=== PATIENT | female | born 1965 | race Caucasian/White ===

== ENCOUNTER 2019-12-07 18:19 | Inpatient (IN) | payer MEDICARE, OTHER ==
[2019-12-07 18:59] VITALS: BMI 45.3
[2019-12-07] MEDS ORDERED: Bisacodyl 5 MG TAB PO PRN (19:25)
[2019-12-07] MEDS ORDERED: Dextrose 50% Abboject 50 ML SYRINGE SLOW IVP PRN (19:26)
[2019-12-07] MEDS ORDERED: Senokot S 8.6-50 MG TAB PO PRN (19:31)
[2019-12-07] MEDS ORDERED: Polyethylene Glycol 3350 17 GM Packet PO PRN (19:31)
[2019-12-07] MEDS: Apixaban 5 MG TAB PO SCH (21:22)
[2019-12-07] MEDS: Montelukast Sodium 10 mg Tablet PO SCH (21:22)
[2019-12-08 05:56] LABS: Band 3 % (5-11); Hemoglobin 8.7 g/dL (12.0-16.0); Hypochromia MODERATE=16-30 cells (100X) (0-5/hpf); Lymphocytes 20 % (21-51); MDiff Complete? YES; Mean Corpuscular HGB CONC 28.5 g/dL (32.0-36.0); Mean Corpuscular Hemoglobin 22.1 pg (27.0-31.0); Mean Corpuscular Volume 77.7 fL (78.0-98.0); Mean Platelet Volume 8.1 fL (7.4-10.4); Monocytes 4 % (0-10); Neutrophil 73 % (42-75); Platelet Count 307 thou/uL (130-400); Platelet Morphology Comment Appears Adequate; RBC Distribution Width 17.7 % (11.5-14.5); Red Blood Cell (RBC) Count 3.94 mill/uL (4.20-5.40); White Blood Cell (WBC) Count 12.5 thou/uL (4.8-10.8)
[2019-12-08 06:00] LABS: ALT (SGPT) 69 U/L (8-55); AST (SGOT) 30 U/L (5-34); Albumin 3.8 g/dL (3.5-5.0); Alkaline Phosphatase 79 U/L (40-110); Anion Gap 17 mmol/L (10-20); BUN (Urea Nitrogen) 26 mg/dL (9.8-20.1); Bilirubin, Total 0.5 mg/dL (0.2-1.2); Calc. Creatinine Clearance 107 mL/min (70-130); Carbon Dioxide 29 mmol/L (22-29); Cardiac Risk 5.5 (Less than 4.5); Chloride 101 mmol/L (98-107); Cholesterol 131 mg/dl (< 200 Desired); Estimated GFR-MDRD 52; Globulin 3.2 g/dL (2.4-3.5); Glucose 114 mg/dL (70-105); HDL Cholesterol 24 mg/dL (>60 Neg Risk); LDL Cholesterol, Calculated 81 mg/dL; Potassium 3.6 mmol/L (3.5-5.1); Sodium 143 mmol/L (136-145); Triglycerides 131 mg/dL (Less than 150)
[2019-12-08] MEDS: Mometasone/Formoterol 200/5 60 PUFF INH SCH ×2 (06:00→18:01)
[2019-12-08] MEDS ORDERED: Sodium Chloride 0.9% 20 ML ONE (08:46)
[2019-12-08] MEDS: Ascorbic Acid 500 mg Chewable Tablet PO SCH (08:57)
[2019-12-08] MEDS: Apixaban 5 MG TAB PO SCH ×2 (08:58→21:33)
[2019-12-08] MEDS: Fenofibrate Nanocrystallized 145 MG TAB PO SCH (08:58)
[2019-12-08] MEDS ORDERED: Pantoprazole 40 MG VIAL IVP SCH (09:00)
[2019-12-08] MEDS: HumuLIN 70/30 (300 UNITS/3 ML VIAL) SC SCH ×2 (09:00→17:27)
[2019-12-08] MEDS ORDERED: methylPREDNISolone Sod Succ 40 MG VIAL IVP SCH (09:00)
[2019-12-08 11:53] LABS: Hemoglobin A1c 8.2 % (4.0-6.0)
[2019-12-08] MEDS ORDERED: Amlodipine 5 MG TAB PO SCH (13:00)
[2019-12-08] MEDS: HumaLOG 300 UNITS/3 ML VIAL SC PRN (13:21)
--- NOTE | 2019-12-08 13:41 | HP ---
PRINCIPAL DIAGNOSIS: Recent COVID-19 pneumonia with resolving respiratory failure and deconditioning for therapy. BRIEF HISTORY: This is a pleasant 54-year-old female, who was admitted to the hospital in [place] on November 17 with fever, cough, and worsening shortness of breath. She apparently had strong exposure to COVID positive patients. She also tested positive 2 days prior to admission. She was admitted to the hospital. Droplet precautions were followed and she was apparently started on clinical trial with Remdesivir. She unfortunately continued to deteriorate requiring intubation and mechanical ventilation. She also developed acute renal failure from acute tubular necrosis requiring temporary dialysis. She was slowly weaned off the ventilator and actually now off her oxygen. She also has not required dialysis in at least a week and her renal functions are pretty much back to normal. She for some reason is continued on IV Solu-Medrol and IV Protonix. Plan is to switch her to oral prednisone and oral pantoprazole. She has been transitioned from full dose Lovenox to Eliquis and the recommendation is for 3 months of full anticoagulation due to their prothrombotic risk from COVID-19. The patient is up in bed and complains of nausea, but denies any chest pain or shortness of breath. She denies any fever or chills. She is still on droplet precaution as we are waiting on for second negative COVID-19 test. PAST MEDICAL HISTORY: 1. Diabetes mellitus type 2. 2. Hypertension. 3. Dyslipidemia. 4. Restless legs syndrome. 5. Fibromyalgia. 6. Anxiety and bipolar disease. 7. Morbid obesity. 8. Asthma. 9. Resolved acute renal failure. 10. Resolved acute hypoxemic respiratory failure. 11. Possible gastroesophageal reflux disease/gastritis. PAST SURGICAL HISTORY: 1. Hysterectomy. 2. Bilateral oophorectomy. 3. Right knee surgery. 4. Bilateral cataract extraction. 5. Recent temporary dialysis catheter placement. PSYCHOSOCIAL HISTORY: She apparently lives with her extended family. She is a former smoker, but quit in 2012. She has more than a 10 pack year history of smoking. She denies any alcohol or recreational drug abuse. She is active and independent prior to this admission. FAMILY HISTORY: Positive for hypertension and diabetes mellitus. MEDICATIONS: She has been transferred here on the following medications; 1. Tylenol 650 p.o. q.4 p.r.n. 2. DuoNeb 3 mL q.i.d. routine. 3. Eliquis 5 mg b.i.d. 4. Vitamin C 1000 mg daily. 5. Tricor 145 mg daily. 6. Humulin 70/30, 35 units subcu b.i.d. with breakfast and dinner. 7. Solu-Medrol 40 mg IV daily. 8. Dulera two puffs b.i.d. gargle after use. 9. Singulair 10 mg daily. 10. Protonix 40 mg IV daily. 11. MiraLAX 17 g in 8 ounces of water as needed. ALLERGIES: SHE IS ALLERGIC TO CLARITHROMYCIN, KETOROLAC, LATEX, MORPHINE, AND . REVIEW OF SYSTEMS: GENERAL: She denies any fever, chills, but is positive for fatigue and weakness. CARDIOVASCULAR: Denies any chest pain, shortness of breath, palpitations, PND, orthopnea, or pedal edema. RESPIRATORY: Denies any chronic cough, expectoration, or pleuritic type chest pain. GASTROINTESTINAL: Denies any nausea, vomiting, diarrhea, constipation, hematemesis, melena, or hematochezia. GENITOURINARY: Denies any frequency, urgency, dysuria, or hematuria. CENTRAL NERVOUS SYSTEM: Denies any focal numbness, weakness, or fainting spells, but generalized weakness. EXTREMITIES: Denies any arthralgia. SKIN: Denies any rash. HEENT: Denies any difficulty speech, vision, hearing, or swallowing. PHYSICAL EXAMINATION: GENERAL: Very pleasant 54-year-old morbidly obese female, who is resting comfortably, in no apparent distress. She responds appropriately to questions. She is alert, awake, and oriented x3. VITAL SIGNS: She is afebrile. Heart rate 79, respirations 20, oxygen saturation 96% on 2 L nasal cannula, blood pressure is 169/82 this was this morning. I saw her where she did not have her oxygen on, maybe she just took it off, I will have nursing monitor her closely. HEENT: Normocephalic and atraumatic. Pupils equally reactive to light and accommodation. NECK: No JVD, thyromegaly, cervical adenopathy, or throat exudates. No carotid bruits. CARDIOVASCULAR: S1 and S2 plus. RESPIRATORY: Normal vesicular breath sounds with decreased air entry in the bases. Occasional rhonchi. ABDOMEN: Soft, obese, nontender. Bowel sounds heard in all quadrants. EXTREMITIES: Without cyanosis or clubbing. Trace edema. Peripheral pulses are palpable. CENTRAL NERVOUS SYSTEM: Awake and responsive. Cranial nerves 2 through 12 intact. Generalized weakness otherwise nonfocal. LABORATORY DATA: Show a white count of 12.5, hemoglobin and hematocrit are 8.7 and 30.6 with microcytic basis. Sodium is 143, potassium 3.6, BUN and creatinine 26 and 1.10. Blood sugars are 124, 114, and 121. A1c 8.2, total cholesterol 131, LDL 81, HDL 24. Repeat COVID-19 test by PCR is pending. IMPRESSION: 1. Resolving COVID-19 pneumonitis. 2. Resolving acute hypoxemic respiratory failure. 3. Resolved acute renal failure. 4. Diabetes mellitus type 2. 5. Hypertension. 6. Dyslipidemia. 7. Bipolar disorder. 8. Elevated blood pressure. 9. Possible gastritis. PLAN: 1. Continue current medications from previous hospital. 2. Switch methylprednisolone to p.o. Protonix. 3. Switch IV pantoprazole to p.o. pantoprazole. 4. Add Tums p.r.n. 5. Start amlodipine 5 mg daily. We will hold off on CLARE inhibitors for now, but we will start probably in a week to make sure her renal functions continue to stabilize. 6. 1800 calorie heart healthy ADA diet. 7. Accu-Cheks with sliding scale coverage. 8. Continue droplet precautions until second COVID-19 test comes back negative. 9. PT/OT eval and treat. 10. Routine laboratory values. 11. Discussed with the patient and nursing in detail. All questions answered. Job ID: [id number]
[2019-12-08] MEDS: Montelukast Sodium 10 mg Tablet PO SCH (21:33)
[2019-12-09] MEDS: Mometasone/Formoterol 200/5 60 PUFF INH SCH ×2 (06:09→21:42)
[2019-12-09] MEDS: HumuLIN 70/30 (300 UNITS/3 ML VIAL) SC SCH ×2 (09:59→17:57)
[2019-12-09] MEDS: Apixaban 5 MG TAB PO SCH ×2 (10:00→21:41)
[2019-12-09] MEDS: Fenofibrate Nanocrystallized 145 MG TAB PO SCH (10:00)
[2019-12-09] MEDS: Amlodipine 5 MG TAB PO SCH (10:00)
[2019-12-09] MEDS: Ascorbic Acid 500 mg Chewable Tablet PO SCH (10:00)
[2019-12-09] MEDS: predniSONE 20 MG TAB PO SCH (10:01)
--- NOTE | 2019-12-09 10:42 | PRG ---
DATE OF SERVICE: 12/09/2019 SUBJECTIVE: Ms. Burnham is up in bed and denies any concerns. Her nausea has pretty much resolved. She is down to 1.5 L of oxygen. She apparently is having some urinary hesitancy and I advised nursing to do a bladder scan, and if that is unremarkable, then to get urinalysis and urine culture. OBJECTIVE: VITAL SIGNS: The patient is afebrile. Heart rate 83, respirations 18, oxygen saturation 97% on 1.5 L, blood pressure 164/72. CARDIOVASCULAR: S1 and S2 plus. RESPIRATORY: Normal vesicular breath sounds with occasional rhonchi. ABDOMEN: Soft, nontender, obese. Bowel sounds heard in all quadrants. EXTREMITIES: Without cyanosis or clubbing. CENTRAL NERVOUS SYSTEM: Generalized weakness otherwise nonfocal. LABORATORY VALUES: Repeat COVID-19 PCR is still pending. IMPRESSION: 1. Resolving COVID-19 pneumonitis. 2. Resolved acute renal failure due to acute tubular necrosis. 3. Resolving acute hypoxemic respiratory failure. 4. Diabetes mellitus type 2. 5. Dyslipidemia. 6. Hypertension. 7. Fibromyalgia. 8. Restless legs syndrome. 9. Asthma. 10. History of bipolar disorder. 11. Deconditioning. PLAN: 1. Continue current medications. 2. 1800 calorie heart healthy ADA diet. 3. Add hydralazine 25 mg p.o. t.i.d. 4. Monitor blood pressure and adjust medications as needed. 5. Accu-Cheks with sliding scale coverage. 6. Bladder scan and then urinalysis and urine culture if needed. 7. Titrate oxygen and monitor respiratory status. 8. Continue droplet precautions until repeat COVID-19 PCR comes back negative. 9. Continue physical therapy and occupational therapy. 10. Recheck CBC and BMP tomorrow. 11. DVT prophylaxis - the patient is on Eliquis. 12. Decubitus precautions. 13. Stress ulcer prophylaxis. She is on pantoprazole. 14. Taper prednisone. 15. Discussed with the patient and nursing in detail. All questions answered. Job ID: [id number]
[2019-12-09] MEDS: OLANZapine 5 MG TAB PO SCH (21:41)
[2019-12-09] MEDS: Montelukast Sodium 10 mg Tablet PO SCH (21:41)
[2019-12-09] MEDS: Mag-Al Plus 1200 MG/1200 MG/120 MG/30 ML UDCUP PO PRN (21:43)
[2019-12-10] MEDS: Mometasone/Formoterol 200/5 60 PUFF INH SCH ×2 (05:43→18:02)
[2019-12-10] MEDS: Ascorbic Acid 500 mg Chewable Tablet PO SCH (09:10)
[2019-12-10] MEDS: Fenofibrate Nanocrystallized 145 MG TAB PO SCH (09:11)
[2019-12-10] MEDS: Apixaban 5 MG TAB PO SCH ×2 (09:11→21:11)
[2019-12-10] MEDS: predniSONE 20 MG TAB PO SCH (09:11)
[2019-12-10] MEDS: Amlodipine 5 MG TAB PO SCH (09:11)
[2019-12-10] MEDS: HumuLIN 70/30 (300 UNITS/3 ML VIAL) SC SCH ×3 (12:41→18:01)
[2019-12-10 13:19] LABS: SARS-CoV-2 MS2 Positive; SARS-CoV-2 N Gene Negative; SARS-CoV-2 S Gene Negative; SARS-CoV-2 orf1ab Negative
--- NOTE | 2019-12-10 15:33 | PRG ---
DATE OF SERVICE: 12/10/2019 SUBJECTIVE: Ms. Burnham is doing well. The Zyprexa seemed to help. Her repeat COVID-19 test is negative and she will be taken off isolation and droplet precautions. She is very happy about that. OBJECTIVE: VITAL SIGNS: She is afebrile. Heart rate 84, respirations 18, oxygen saturation 97% on 1.5 L nasal cannula, blood pressure is still elevated at 179/77. CARDIOVASCULAR: S1 and S2 plus. RESPIRATORY: Normal vesicular breath sounds. ABDOMEN: Soft, nontender. Bowel sounds heard in all quadrants. EXTREMITIES: Without cyanosis or clubbing. CENTRAL NERVOUS SYSTEM: Generalized weakness, otherwise nonfocal. LABORATORY DATA: Blood sugars are 121, 131, 94. White count is 4.5, H and H are 8.7 and 30.6 that was actually on admission. We are supposed to get repeat labs this morning and I am not sure what happened. IMPRESSION: 1. Hypertension, not well controlled. 2. Acute hypoxemic respiratory failure. 3. Resolved COVID-19 infection. 4. Diabetes mellitus, type 2. 5. Resolved acute renal failure. 6. Bipolar disorder. 7. Dyslipidemia. 8. Deconditioning. PLAN: 1. Continue current medications, but increase amlodipine to 10 mg daily. 2. Probably start her on lisinopril if amlodipine is not enough. 3. Check and see what happened that the labs ordered this morning. 4. Discontinue droplet precautions and isolation. 5. Continue therapy. 6. Routine laboratory values. 7. 1800 calorie heart healthy ADA diet. 8. Accu-Cheks with sliding scale coverage. 9. DVT prophylaxis-the patient is on Eliquis. Job ID: [id number] [facility]
[2019-12-10] MEDS: OLANZapine 5 MG TAB PO SCH (21:10)
[2019-12-10] MEDS: Montelukast Sodium 10 mg Tablet PO SCH (21:10)
[2019-12-10] MEDS: Lisinopril 10 MG TAB PO SCH (21:11)
[2019-12-11] MEDS: Mometasone/Formoterol 200/5 60 PUFF INH SCH ×2 (05:42→17:12)
[2019-12-11] MEDS: Ascorbic Acid 500 mg Chewable Tablet PO SCH (08:55)
[2019-12-11] MEDS: Apixaban 5 MG TAB PO SCH ×2 (08:56→20:16)
[2019-12-11] MEDS: predniSONE 20 MG TAB PO SCH (08:56)
[2019-12-11] MEDS: Fenofibrate Nanocrystallized 145 MG TAB PO SCH (08:58)
[2019-12-11] MEDS: Amlodipine 5 MG TAB PO SCH (08:58)
[2019-12-11] MEDS: HumuLIN 70/30 (300 UNITS/3 ML VIAL) SC SCH ×2 (08:59→17:13)
--- NOTE | 2019-12-11 15:13 | PRG ---
DATE OF SERVICE: 12/11/2019 SUBJECTIVE: Ms. Burnham has been moved to room 152 since her second COVID-19 test was negative. She is doing much better. She is off her oxygen currently. She states that the Zyprexa is helping. OBJECTIVE: VITAL SIGNS: She is afebrile. Heart rate 84, respirations 16, oxygen saturation 90% on room air, blood pressure 156/72. CARDIOVASCULAR: S1 and S2 plus. RESPIRATORY: Normal vesicular breath sounds. ABDOMEN: Soft, nontender. Bowel sounds heard in all quadrants. EXTREMITIES: Without cyanosis or clubbing. CENTRAL NERVOUS SYSTEM: Improving deconditioning. LABORATORY DATA: Blood sugars are 140, 86, 157, 111, and 149. IMPRESSION: 1. Resolved COVID-19 infection. 2. Resolved acute renal failure. 3. Resolved acute hypoxemic respiratory failure. 4. Diabetes mellitus type 2. 5. Hypertension. 6. Dyslipidemia. 7. Bipolar disorder. 8. Deconditioning. PLAN: 1. Continue current medications. 2. Recheck CBC and BMP tomorrow. For some reason, the labs that ordered yesterday were not done. 3. Continue to monitor respiratory status. 4. DVT prophylaxis - the patient is on Eliquis. 5. Decubitus precautions. 6. Stress ulcer prophylaxis. 7. Adjust blood pressure medications. 8. Discussed with the patient and nursing in detail. All questions answered. Job ID: [id number]
[2019-12-11] MEDS ORDERED: Fluconazole 100 MG TAB PO SCH (18:45)
[2019-12-11] MEDS: Montelukast Sodium 10 mg Tablet PO SCH (20:14)
[2019-12-11] MEDS: Lisinopril 10 MG TAB PO SCH (20:15)
[2019-12-11] MEDS: OLANZapine 5 MG TAB PO SCH (20:16)
[2019-12-12 05:16] LABS: #Basophils 0.1 thou/uL (0.0-0.2); #Eosinphils 0.3 thou/uL (0.0-0.7); #Lymphocytes 3.1 thou/uL (1.20-3.40); #Monocytes 0.7 thou/uL (0.11-0.59); #Neutrophils 6.1 thou/uL (1.40-6.50); %Basophils 1.4 % (0.0-1.0); %Eosinophils 2.5 % (0.0-10.0); %Monocytes 6.5 % (0.0-10.0); %Neutrophils 59.7 % (42.0-75.0); Hemoglobin 8.3 g/dL (12.0-16.0); Hypochromia MODERATE=16-30 cells (100X) (0-5/hpf); MDiff Complete? YES; Mean Corpuscular HGB CONC 29.2 g/dL (32.0-36.0); Mean Corpuscular Hemoglobin 22.8 pg (27.0-31.0); Mean Corpuscular Volume 78.2 fL (78.0-98.0); Mean Platelet Volume 8.4 fL (7.4-10.4); Microcytosis MODERATE=15-30 cells (100X) (0-5/hpf); Platelet Count 244 thou/uL (130-400); Platelet Morphology Comment Appears Adequate; RBC Distribution Width 19.6 % (11.5-14.5); Red Blood Cell (RBC) Count 3.62 mill/uL (4.20-5.40); White Blood Cell (WBC) Count 10.3 thou/uL (4.8-10.8)
[2019-12-12 05:23] LABS: Anion Gap 16 mmol/L (10-20); BUN (Urea Nitrogen) 20 mg/dL (9.8-20.1); Calc. Creatinine Clearance 107 mL/min (70-130); Calcium 9.2 mg/dL (7.8-10.44); Carbon Dioxide 27 mmol/L (22-29); Chloride 102 mmol/L (98-107); Estimated GFR-MDRD 52; Glucose 105 mg/dL (70-105); Potassium 3.3 mmol/L (3.5-5.1); Sodium 142 mmol/L (136-145)
[2019-12-12] MEDS: Mometasone/Formoterol 200/5 60 PUFF INH SCH ×2 (05:29→18:35)
[2019-12-12] MEDS: HumuLIN 70/30 (300 UNITS/3 ML VIAL) SC SCH ×2 (08:56→16:51)
[2019-12-12] MEDS: predniSONE 20 MG TAB PO SCH (08:57)
[2019-12-12] MEDS: Ascorbic Acid 500 mg Chewable Tablet PO SCH (08:57)
[2019-12-12] MEDS: Fenofibrate Nanocrystallized 145 MG TAB PO SCH (08:57)
[2019-12-12] MEDS: Apixaban 5 MG TAB PO SCH ×2 (08:57→21:31)
[2019-12-12] MEDS: Amlodipine 5 MG TAB PO SCH (08:57)
[2019-12-12] MEDS: Acetaminophen 325 MG TAB PO PRN ×2 (09:25→16:54)
[2019-12-12] MEDS: HumaLOG 300 UNITS/3 ML VIAL SC PRN ×2 (12:01→16:51)
--- NOTE | 2019-12-12 13:31 | PRG ---
DATE OF SERVICE: 12/12/2019 SUBJECTIVE: Ms. Burnham is up in her chair. She just finished her lunch. She denies any questions or concerns. OBJECTIVE: VITAL SIGNS: She is afebrile. Heart rate is 97, respirations 18, oxygen saturation 94% on room air, blood pressure 144/68. CARDIOVASCULAR: S1, S2 plus. RESPIRATORY: Normal vesicular breath sounds. ABDOMEN: Soft, nontender. Bowel sounds heard in all quadrants. EXTREMITIES: Without cyanosis or clubbing. CENTRAL NERVOUS SYSTEM: Improving deconditioning. LABORATORY DATA: White count is 10.3, H and H are 8.3 and 28.3. Sodium 142, potassium is slightly low at 3.3, BUN and creatinine are 20 and 1.1. Blood sugars are 149, 178, 112, 161. IMPRESSION: 1. Resolved COVID pneumonia. 2. Resolved acute hypoxemic respiratory failure. 3. Resolved acute tubular necrosis and acute renal failure. 4. Asthma. 5. Diabetes mellitus type 2. 6. Hypertension. 7. Dyslipidemia. 8. Bipolar disorder. 9. Obesity. PLAN: 1. Continue current medications. 2. Heart healthy ADA diet. 3. Accu-Cheks with sliding scale coverage. 4. Taper steroids. 5. Continue therapy. 6. DVT prophylaxis - she is on Eliquis. 7. Decubitus precautions. 8. Stress ulcer prophylaxis. 9. Routine laboratory values. Job ID: [id number]
[2019-12-12 16:47] LABS: INR-International Normal Ratio 1.5; Prothrombin Time 17.6 sec (12.0-14.7)
[2019-12-12] MEDS: Montelukast Sodium 10 mg Tablet PO SCH (21:31)
[2019-12-12] MEDS: Lisinopril 10 MG TAB PO SCH (21:31)
[2019-12-12] MEDS: OLANZapine 5 MG TAB PO SCH (21:32)
[2019-12-13] MEDS: Acetaminophen 325 MG TAB PO PRN ×3 (04:39→18:13)
[2019-12-13 05:59] LABS: INR-International Normal Ratio 1.5
[2019-12-13] MEDS: Mometasone/Formoterol 200/5 60 PUFF INH SCH ×2 (06:02→18:12)
[2019-12-13] MEDS: HumuLIN 70/30 (300 UNITS/3 ML VIAL) SC SCH ×2 (09:31→17:08)
[2019-12-13] MEDS: predniSONE 20 MG TAB PO SCH (09:34)
[2019-12-13] MEDS: Apixaban 5 MG TAB PO SCH ×2 (09:35→20:46)
[2019-12-13] MEDS: Amlodipine 5 MG TAB PO SCH (09:35)
[2019-12-13] MEDS: Ascorbic Acid 500 mg Chewable Tablet PO SCH (09:35)
[2019-12-13] MEDS: Fenofibrate Nanocrystallized 145 MG TAB PO SCH (09:36)
--- NOTE | 2019-12-13 14:08 | PRG ---
DATE OF SERVICE: 12/13/2019 SUBJECTIVE: Ms. Burnham is resting in bed. She is tired due to therapy. She also states that she has a rash to bilateral axilla and it is itchy and irritating. She is happy with her progress. Denies any chest pain or shortness of breath. OBJECTIVE: VITAL SIGNS: She is afebrile. Heart rate is 86, respirations 18, oxygen saturation 92% on room air, blood pressure 129/66. CARDIOVASCULAR: S1 and S2 plus. RESPIRATORY: Normal vesicular breath sounds. ABDOMEN: Soft, nontender. Bowel sounds heard in all quadrants. EXTREMITIES: Without cyanosis or clubbing. CENTRAL NERVOUS SYSTEM: Improving deconditioning. IMPRESSION: 1. Resolved COVID-19 pneumonia. 2. Resolved acute hypoxemic respiratory failure. 3. Resolved acute renal failure. 4. Hypertension. 5. Dyslipidemia. 6. Diabetes mellitus type 2. 7. Morbid obesity. PLAN: 1. Continue current medications. 2. 1800 calorie heart healthy ADA diet. 3. Accu-Cheks with sliding scale coverage. 4. DVT prophylaxis - she is on Eliquis. 5. Decubitus precautions. 6. Stress ulcer prophylaxis. 7. Routine laboratory values. 8. Nystatin powder b.i.d. for tinea cruris. Job ID: [id number]
[2019-12-13] MEDS: HumaLOG 300 UNITS/3 ML VIAL SC PRN (17:09)
[2019-12-13] MEDS: Montelukast Sodium 10 mg Tablet PO SCH (20:46)
[2019-12-13] MEDS: Nystatin Powder 15 GM BOT TOP SCH (20:46)
[2019-12-13] MEDS: OLANZapine 5 MG TAB PO SCH (20:46)
[2019-12-13] MEDS: Lisinopril 10 MG TAB PO SCH (20:46)
[2019-12-14] MEDS: Acetaminophen 325 MG TAB PO PRN ×3 (05:12→16:13)
[2019-12-14] MEDS: Mometasone/Formoterol 200/5 60 PUFF INH SCH ×2 (05:12→17:46)
[2019-12-14 05:36] LABS: INR-International Normal Ratio 1.2; Prothrombin Time 15.3 sec (12.0-14.7)
[2019-12-14] MEDS: Fenofibrate Nanocrystallized 145 MG TAB PO SCH (08:45)
[2019-12-14] MEDS: Apixaban 5 MG TAB PO SCH ×2 (08:45→20:11)
[2019-12-14] MEDS: Amlodipine 5 MG TAB PO SCH (08:46)
[2019-12-14] MEDS: predniSONE 20 MG TAB PO SCH (08:46)
[2019-12-14] MEDS: Ascorbic Acid 500 mg Chewable Tablet PO SCH (08:46)
[2019-12-14] MEDS: HumuLIN 70/30 (300 UNITS/3 ML VIAL) SC SCH ×2 (08:47→16:14)
[2019-12-14] MEDS: Nystatin Powder 15 GM BOT TOP SCH ×2 (09:00→20:13)
[2019-12-14] MEDS: HumaLOG 300 UNITS/3 ML VIAL SC PRN ×2 (11:25→16:15)
--- NOTE | 2019-12-14 11:53 | PRG ---
DATE OF SERVICE: 12/14/2019 SUBJECTIVE: Ms. Burnham has been moved to 142. She is happy with her progress. She denies any questions or concerns. OBJECTIVE: VITAL SIGNS: She is afebrile, heart rate 94, respirations 20, oxygen saturation 94% on room air, blood pressure 156/72. CARDIOVASCULAR: S1 and S2 plus. RESPIRATORY: Normal vesicular breath sounds. ABDOMEN: Soft, nontender. Bowel sounds heard in all quadrants. EXTREMITIES: Without cyanosis or clubbing. CENTRAL NERVOUS SYSTEM: Improving deconditioning. LABORATORY VALUES: Blood sugars of 132, 147, 231, 137, and 134. IMPRESSION: 1. Resolved acute hypoxemic respiratory failure. 2. Resolved COVID-19 infection. 3. Diabetes mellitus type 2. 4. Hypertension. 5. Dyslipidemia. 6. Morbid obesity. 7. Improving deconditioning. 8. Resolved acute renal failure. PLAN: 1. Continue current medications. 2. 1800-calorie heart healthy ADA diet. 3. Accu-Cheks with sliding scale coverage. 4. DVT prophylaxis - she is on Eliquis. 5. Decubitus precautions. 6. Stress ulcer prophylaxis. 7. Routine laboratory values. 8. Physical therapy. 9. Nystatin powder for tinea cruris. Job ID: [id number]
[2019-12-14] MEDS: OLANZapine 5 MG TAB PO SCH (20:11)
[2019-12-14] MEDS: Lisinopril 10 MG TAB PO SCH (20:11)
[2019-12-14] MEDS: Montelukast Sodium 10 mg Tablet PO SCH (20:11)
[2019-12-15] MEDS: Acetaminophen 325 MG TAB PO PRN ×3 (03:02→16:52)
[2019-12-15] MEDS: Mometasone/Formoterol 200/5 60 PUFF INH SCH ×2 (05:14→18:13)
[2019-12-15 05:29] LABS: INR-International Normal Ratio 1.3; Prothrombin Time 16.5 sec (12.0-14.7)
[2019-12-15] MEDS: Nystatin Powder 15 GM BOT TOP SCH ×2 (08:08→20:30)
[2019-12-15] MEDS: Fenofibrate Nanocrystallized 145 MG TAB PO SCH (08:08)
[2019-12-15] MEDS: Amlodipine 5 MG TAB PO SCH (08:09)
[2019-12-15] MEDS: Ascorbic Acid 500 mg Chewable Tablet PO SCH (08:09)
[2019-12-15] MEDS: HumuLIN 70/30 (300 UNITS/3 ML VIAL) SC SCH ×2 (08:09→16:47)
[2019-12-15] MEDS: predniSONE 20 MG TAB PO SCH (08:09)
[2019-12-15] MEDS: Apixaban 5 MG TAB PO SCH ×2 (08:09→20:27)
[2019-12-15] MEDS: HumaLOG 300 UNITS/3 ML VIAL SC PRN ×2 (11:40→16:48)
--- NOTE | 2019-12-15 13:58 | PRG ---
DATE OF SERVICE: 12/15/2019 SUBJECTIVE: Ms. Burnham is doing well. She is happy with her progress. She denies any questions or concerns. Apparently, there is some social issue going on, where her family does not want her back home. I have put an order for Case Management to work on discharge planning. OBJECTIVE: VITAL SIGNS: She is afebrile. Heart rate 94, respirations 22, oxygen saturation 93% on room air, blood pressure 137/87. CARDIOVASCULAR: S1 and S2 plus. RESPIRATORY: Normal vesicular breath sounds. ABDOMEN: Soft, nontender. Bowel sounds heard in all quadrants. EXTREMITIES: Without cyanosis or clubbing. IMPRESSION: 1. Resolved COVID pneumonia. 2. Resolved acute renal failure. 3. Resolved acute hypoxemic respiratory failure. 4. Diabetes mellitus type 2. 5. Hypertension. 6. Dyslipidemia. 7. Morbid obesity. 8. Tinea cruris. PLAN: 1. Continue current medications. 2. 1800 calorie heart healthy ADA diet. 3. Accu-Cheks with sliding scale coverage. 4. DVT prophylaxis - she is on Eliquis. 5. Decubitus precautions. 6. Stress ulcer prophylaxis. 7. Routine laboratory values. 8. Physical therapy. Job ID: [id number]
[2019-12-15] MEDS: OLANZapine 5 MG TAB PO SCH (20:27)
[2019-12-15] MEDS: Lisinopril 10 MG TAB PO SCH (20:27)
[2019-12-15] MEDS: Montelukast Sodium 10 mg Tablet PO SCH (20:29)
[2019-12-16] MEDS: Acetaminophen 325 MG TAB PO PRN ×3 (02:35→18:29)
[2019-12-16] MEDS: Mometasone/Formoterol 200/5 60 PUFF INH SCH ×2 (05:21→18:02)
[2019-12-16 05:42] LABS: INR-International Normal Ratio 1.3; Prothrombin Time 16.4 sec (12.0-14.7)
[2019-12-16] MEDS: Fenofibrate Nanocrystallized 145 MG TAB PO SCH (08:25)
[2019-12-16] MEDS: predniSONE 20 MG TAB PO SCH (08:26)
[2019-12-16] MEDS: Ascorbic Acid 500 mg Chewable Tablet PO SCH (08:26)
[2019-12-16] MEDS: Apixaban 5 MG TAB PO SCH ×2 (08:26→20:40)
[2019-12-16] MEDS: Amlodipine 5 MG TAB PO SCH (08:26)
[2019-12-16] MEDS: HumuLIN 70/30 (300 UNITS/3 ML VIAL) SC SCH ×2 (08:27→17:57)
[2019-12-16] MEDS: Nystatin Powder 15 GM BOT TOP SCH ×2 (08:27→20:40)
[2019-12-16] MEDS: HumaLOG 300 UNITS/3 ML VIAL SC PRN ×3 (12:24→20:41)
--- NOTE | 2019-12-16 14:40 | PRG ---
DATE OF SERVICE: 12/16/2019 SUBJECTIVE: Ms. Burnham is doing well. She is very happy that they have made her independent within the wound. She is happy with progress. No concerns or questions. OBJECTIVE: VITAL SIGNS: She is afebrile, heart rate 94, respirations 20, oxygen saturation 93% on room air, and blood pressure 139/65. CARDIOVASCULAR SYSTEM: S1 and S2 plus. RESPIRATORY SYSTEM: Normal vesicular breath sounds. ABDOMEN: Soft, nontender. Bowel sounds heard in all quadrants. EXTREMITIES: Without cyanosis or clubbing. CENTRAL NERVOUS SYSTEM: Grossly nonfocal. IMPRESSION: 1. Resolved COVID-19 pneumonia. 2. Resolved acute renal failure. 3. Diabetes mellitus, type 2. 4. Hypertension. 5. Dyslipidemia. 6. Bipolar disorder. 7. Obesity. PLAN: 1. Continue current medications. 2. 1800-calorie heart healthy ADA diet. 3. Accu-Cheks with sliding scale coverage. 4. DVT prophylaxis - she is on Eliquis. 5. Decubitus precautions. 6. Stress ulcer prophylaxis. 7. Monitor respiratory status. 8. Continue therapy. 9. Routine laboratory values. 10. Her blood sugars are 167, 129, 132, 188. Job ID: [id number]
[2019-12-16] MEDS: Montelukast Sodium 10 mg Tablet PO SCH (20:39)
[2019-12-16] MEDS: OLANZapine 5 MG TAB PO SCH (20:39)
[2019-12-16] MEDS: Lisinopril 10 MG TAB PO SCH (20:40)
[2019-12-17] MEDS: Mometasone/Formoterol 200/5 60 PUFF INH SCH ×2 (05:39→18:10)
[2019-12-17 05:40] LABS: Hemoglobin 8.8 g/dL (12.0-16.0); Platelet Count 261 thou/uL (130-400)
[2019-12-17] MEDS: Acetaminophen 325 MG TAB PO PRN ×3 (05:40→20:24)
[2019-12-17 05:50] LABS: INR-International Normal Ratio 1.4
[2019-12-17] MEDS: HumuLIN 70/30 (300 UNITS/3 ML VIAL) SC SCH ×2 (08:18→16:22)
[2019-12-17] MEDS: Amlodipine 5 MG TAB PO SCH (08:19)
[2019-12-17] MEDS: predniSONE 20 MG TAB PO SCH (08:19)
[2019-12-17] MEDS: Ascorbic Acid 500 mg Chewable Tablet PO SCH (08:20)
[2019-12-17] MEDS: Fenofibrate Nanocrystallized 145 MG TAB PO SCH (08:20)
[2019-12-17] MEDS: Nystatin Powder 15 GM BOT TOP SCH ×2 (08:20→20:27)
[2019-12-17] MEDS: Apixaban 5 MG TAB PO SCH ×2 (08:20→20:26)
[2019-12-17] MEDS: HumaLOG 300 UNITS/3 ML VIAL SC PRN ×2 (16:23→20:27)
--- NOTE | 2019-12-17 16:23 | PRG ---
DATE OF SERVICE: 12/17/2019 SUBJECTIVE: Ms. Burnham is doing the same other than mild headache on and off, Tylenol helps. She apparently had to file an appeal for her to stay here longer. OBJECTIVE: VITAL SIGNS: She is afebrile. Heart rate 69, respirations 18, oxygen saturation 94% on room air. CARDIOVASCULAR SYSTEM: S1 and S2 plus. RESPIRATORY SYSTEM: Normal vesicular breath sounds. ABDOMEN: Soft and nontender. Bowel sounds heard in all quadrants. EXTREMITIES: Without cyanosis or clubbing. Improving deconditioning. IMPRESSION: 1. Resolved COVID-19 infection. 2. Resolved acute renal failure. 3. Resolved acute hypoxemic respiratory failure. 4. Diabetes mellitus type 2. 5. Hypertension. 6. Bipolar disorder. 7. Obesity. 8. Improving deconditioning. PLAN: 1. Continue current medications. 2. Nutritional support with 1800-calorie heart healthy ADA diet. 3. Accu-Cheks with sliding scale coverage. 4. DVT prophylaxis-the patient is on Eliquis. 5. Decubitus precautions. 6. Stress ulcer prophylaxis. 7. Routine laboratory values. 8. Therapy. Job ID: [id number]
[2019-12-17] MEDS: Lisinopril 10 MG TAB PO SCH (20:25)
[2019-12-17] MEDS: OLANZapine 5 MG TAB PO SCH (20:25)
[2019-12-17] MEDS: Montelukast Sodium 10 mg Tablet PO SCH (20:26)
[2019-12-18] MEDS: Acetaminophen 325 MG TAB PO PRN ×4 (03:22→21:29)
[2019-12-18] MEDS: Mometasone/Formoterol 200/5 60 PUFF INH SCH ×2 (05:34→18:12)
[2019-12-18] MEDS: HumuLIN 70/30 (300 UNITS/3 ML VIAL) SC SCH ×2 (08:46→17:12)
[2019-12-18] MEDS: Ascorbic Acid 500 mg Chewable Tablet PO SCH (08:47)
[2019-12-18] MEDS: Apixaban 5 MG TAB PO SCH ×2 (08:47→20:28)
[2019-12-18] MEDS: Amlodipine 5 MG TAB PO SCH (08:47)
[2019-12-18] MEDS: predniSONE 20 MG TAB PO SCH (08:47)
[2019-12-18] MEDS: Nystatin Powder 15 GM BOT TOP SCH ×2 (08:48→20:29)
[2019-12-18] MEDS: Fenofibrate Nanocrystallized 145 MG TAB PO SCH (08:48)
[2019-12-18] MEDS: HumaLOG 300 UNITS/3 ML VIAL SC PRN ×3 (11:17→20:31)
--- NOTE | 2019-12-18 14:45 | PRG ---
DATE OF SERVICE: 12/18/2019 SUBJECTIVE: Ms. Burnham is resting in bed. She is happy with her progress. No family at bedside. Discussed with nursing. OBJECTIVE: VITAL SIGNS: She is afebrile. Heart rate 63, respirations are 16, oxygen saturation 96% on room air, blood pressure was elevated at 178/76. CARDIOVASCULAR: S1 and S2 plus. RESPIRATORY: Normal vesicular breath sounds. ABDOMEN: Soft, nontender. Bowel sounds heard in all quadrants. Obese. EXTREMITIES: Without cyanosis or clubbing. CENTRAL NERVOUS SYSTEM: Improving deconditioning. IMPRESSION: 1. Hypertension, not well controlled. 2. Diabetes mellitus type 2. 3. Dyslipidemia. 4. Asthma. 5. Bipolar disorder. 6. Improving deconditioning. PLAN: 1. Continue current medications. 2. Increase lisinopril to 20 mg at bedtime. 3. Last dose of prednisone is today. 4. 1800 calorie heart healthy ADA diet. 5. Accu-Cheks with sliding scale coverage. 6. Physical therapy. 7. Monitor respiratory status. 8. Routine laboratory values. Job ID: [id number]
[2019-12-18] MEDS: Montelukast Sodium 10 mg Tablet PO SCH (20:27)
[2019-12-18] MEDS: Lisinopril 20 MG TAB PO SCH (20:28)
[2019-12-18] MEDS: OLANZapine 5 MG TAB PO SCH (20:29)
[2019-12-19] MEDS: Acetaminophen 325 MG TAB PO PRN ×4 (03:44→20:09)
[2019-12-19] MEDS: Mometasone/Formoterol 200/5 60 PUFF INH SCH ×2 (05:53→18:32)
[2019-12-19] MEDS: Nystatin Powder 15 GM BOT TOP SCH ×2 (08:58→20:12)
[2019-12-19] MEDS: HumuLIN 70/30 (300 UNITS/3 ML VIAL) SC SCH ×2 (08:58→17:02)
[2019-12-19] MEDS: Fenofibrate Nanocrystallized 145 MG TAB PO SCH (08:59)
[2019-12-19] MEDS: Ascorbic Acid 500 mg Chewable Tablet PO SCH (08:59)
[2019-12-19] MEDS: Amlodipine 5 MG TAB PO SCH (09:00)
[2019-12-19] MEDS: Apixaban 5 MG TAB PO SCH ×2 (09:00→20:10)
--- NOTE | 2019-12-19 13:40 | PRG ---
DATE OF SERVICE: 12/19/2019 SUBJECTIVE: Ms. Bunrham is ambulating in the hallways with therapy. She denies any complaints. She is happy with her progress. OBJECTIVE: VITAL SIGNS: She is afebrile. Heart rate 94; respirations 18; oxygen saturation 94% on room air; blood pressure this morning was 176/87, advised nursing to check it after they have given her blood pressure medicine. CARDIOVASCULAR: S1 and S2 plus. RESPIRATORY: Normal vesicular breath sounds. ABDOMEN: Soft, nontender. Bowel sounds heard in all quadrants. Obese. EXTREMITIES: Without cyanosis or clubbing. CENTRAL NERVOUS SYSTEM: Improving deconditioning. IMPRESSION: 1. Hypertension. 2. Dyslipidemia. 3. Diabetes mellitus type 2. 4. Morbid obesity. 5. Bipolar disorder. 6. Resolved COVID-19 infection. PLAN: 1. Continue current medications. 2. 1800 calorie heart healthy ADA diet. 3. Accu-Cheks with sliding scale coverage. 4. DVT prophylaxis. 5. Decubitus precautions. 6. Stress ulcer prophylaxis. 7. Physical therapy. 8. Discharge planning. Job ID: [id number]
[2019-12-19] MEDS: HumaLOG 300 UNITS/3 ML VIAL SC PRN (17:02)
[2019-12-19] MEDS: Ondansetron ODT 4 MG TAB PO PRN (19:02)
[2019-12-19] MEDS: Lisinopril 20 MG TAB PO SCH (20:10)
[2019-12-19] MEDS: OLANZapine 5 MG TAB PO SCH (20:10)
[2019-12-19] MEDS: Montelukast Sodium 10 mg Tablet PO SCH (20:10)
[2019-12-20] MEDS: Acetaminophen 325 MG TAB PO PRN ×4 (01:48→20:41)
[2019-12-20] MEDS: Mometasone/Formoterol 200/5 60 PUFF INH SCH ×2 (06:08→18:17)
[2019-12-20] MEDS: Nystatin Powder 15 GM BOT TOP SCH ×2 (08:52→20:45)
[2019-12-20] MEDS: HumuLIN 70/30 (300 UNITS/3 ML VIAL) SC SCH ×2 (08:52→17:10)
[2019-12-20] MEDS: Ascorbic Acid 500 mg Chewable Tablet PO SCH (08:53)
[2019-12-20] MEDS: Apixaban 5 MG TAB PO SCH ×2 (08:53→20:42)
[2019-12-20] MEDS: Amlodipine 5 MG TAB PO SCH (08:53)
[2019-12-20] MEDS: Fenofibrate Nanocrystallized 145 MG TAB PO SCH (08:53)
--- NOTE | 2019-12-20 13:09 | PRG ---
DATE OF SERVICE: 12/20/2019 SUBJECTIVE: Ms. Burnham is up in her bed. She is happy with the progress. Denies any questions or concerns. OBJECTIVE: VITAL SIGNS: She is afebrile. Heart rate 86, respirations 18, oxygen saturation 94% on room air, blood pressure 143/66. CARDIOVASCULAR SYSTEM: S1 and S2 plus. RESPIRATORY SYSTEM: Normal vesicular breath sounds. ABDOMEN: Soft and nontender. Bowel sounds heard in all quadrants. EXTREMITIES: Without cyanosis or clubbing. CENTRAL NERVOUS SYSTEM: Improving deconditioning. IMPRESSION: 1. Resolved COVID-19 infection. 2. Resolved acute hypoxemic respiratory failure. 3. Asthma. 4. Diabetes mellitus, type 2. 5. Hypertension. 6. Dyslipidemia. 7. Morbid obesity. 8. Anemia of chronic disease, possibly iron deficiency. PLAN: 1. Continue current medications. 2. 1800-calorie heart healthy ADA diet. 3. Accu-Cheks with sliding scale coverage. 4. DVT prophylaxis - she is on Eliquis. 5. Decubitus precautions. 6. Stress ulcer prophylaxis. 7. Routine laboratory values. 8. Continue therapy. 9. Await case conference decision on discharge. Job ID: [id number]
[2019-12-20] MEDS: Montelukast Sodium 10 mg Tablet PO SCH (20:41)
[2019-12-20] MEDS: OLANZapine 5 MG TAB PO SCH (20:41)
[2019-12-20] MEDS: Lisinopril 20 MG TAB PO SCH (20:42)
[2019-12-21] MEDS: Acetaminophen 325 MG TAB PO PRN ×4 (01:20→20:39)
[2019-12-21] MEDS: Mometasone/Formoterol 200/5 60 PUFF INH SCH ×2 (05:47→18:09)
[2019-12-21] MEDS: HumaLOG 300 UNITS/3 ML VIAL SC PRN (05:48)
[2019-12-21] MEDS: HumuLIN 70/30 (300 UNITS/3 ML VIAL) SC SCH ×2 (08:27→16:30)
[2019-12-21] MEDS: Amlodipine 5 MG TAB PO SCH (08:28)
[2019-12-21] MEDS: Ascorbic Acid 500 mg Chewable Tablet PO SCH (08:28)
[2019-12-21] MEDS: Apixaban 5 MG TAB PO SCH ×2 (08:28→20:40)
[2019-12-21] MEDS: Fenofibrate Nanocrystallized 145 MG TAB PO SCH (08:29)
[2019-12-21] MEDS: Nystatin Powder 15 GM BOT TOP SCH ×2 (08:29→20:41)
[2019-12-21] MEDS: Ondansetron ODT 4 MG TAB PO PRN (09:12)
[2019-12-21] MEDS: Mag-Al Plus 1200 MG/1200 MG/120 MG/30 ML UDCUP PO PRN (09:12)
--- NOTE | 2019-12-21 13:03 | PRG ---
DATE OF SERVICE: 12/21/2019 SUBJECTIVE: Ms. Burnham is doing well. Denies any concerns. She had an episode of nausea this morning, but it is pretty much back to normal. She is looking forward to her therapy session this afternoon. Plan is for her to go home on Thursday with her sister. I advised her that I will give her list of current medicines tomorrow and then she can tell me what refills she needs and pharmacy of her choice. OBJECTIVE: VITAL SIGNS: She is afebrile. Heart rate is 97, respirations are 18, oxygen saturation 94% on room air, blood pressure is 144/78 after her morning medications. CARDIOVASCULAR: S1 and S2 plus. RESPIRATORY: Normal vesicular breath sounds. ABDOMEN: Soft and nontender. Bowel sounds heard in all quadrants. EXTREMITIES: Without cyanosis or clubbing. CENTRAL NERVOUS SYSTEM: Improving deconditioning. IMPRESSION: 1. Resolved COVID-19 infection. 2. Resolved acute hypoxemic respiratory failure. 3. Diabetes mellitus type 2. 4. Hypertension. 5. Dyslipidemia. 6. Asthma. 7. Anemia of chronic disease with possibly superimposed iron deficiency since it is microcytic. PLAN: 1. Continue current medications. 2. Check iron levels tomorrow. 3. Continue therapy. 4. Accu-Cheks with sliding scale coverage. 5. Discharge planning. 6. DVT prophylaxis. She is on Eliquis. Job ID: [id number]
[2019-12-21] MEDS: Lisinopril 20 MG TAB PO SCH (20:40)
[2019-12-21] MEDS: Montelukast Sodium 10 mg Tablet PO SCH (20:40)
[2019-12-21] MEDS: OLANZapine 5 MG TAB PO SCH (20:40)
[2019-12-22] MEDS: Acetaminophen 325 MG TAB PO PRN ×3 (03:39→20:21)
[2019-12-22] MEDS: Mometasone/Formoterol 200/5 60 PUFF INH SCH ×2 (05:32→18:29)
[2019-12-22] MEDS: HumaLOG 300 UNITS/3 ML VIAL SC PRN (05:33)
[2019-12-22] MEDS: HumuLIN 70/30 (300 UNITS/3 ML VIAL) SC SCH ×2 (09:03→17:04)
[2019-12-22] MEDS: Amlodipine 5 MG TAB PO SCH (09:16)
[2019-12-22] MEDS: Apixaban 5 MG TAB PO SCH ×2 (09:17→20:21)
[2019-12-22] MEDS: Ascorbic Acid 500 mg Chewable Tablet PO SCH (09:17)
[2019-12-22] MEDS: Fenofibrate Nanocrystallized 145 MG TAB PO SCH (09:18)
[2019-12-22] MEDS: Nystatin Powder 15 GM BOT TOP SCH ×2 (09:18→20:21)
--- NOTE | 2019-12-22 13:35 | PRG ---
DATE OF SERVICE: 12/22/2019 SUBJECTIVE: Ms. Burnham is up in her chair, very very happy with the progress. Anticipated discharge date is tomorrow. No concerns or questions. I reviewed her medications, and she told me what medicine she needs a refill on, and she uses [facility] on [address]. OBJECTIVE: VITAL SIGNS: The patient is afebrile. Heart rate is 93, respirations 18, oxygen saturation 95% on room air, blood pressure 143/67. CARDIOVASCULAR: S1 and S2 plus. RESPIRATORY: Normal vesicular breath sounds. ABDOMEN: Soft and nontender. Bowel sounds heard in all quadrants. EXTREMITIES: Without cyanosis or clubbing. CENTRAL NERVOUS SYSTEM: Improving deconditioning. IMPRESSION: 1. Resolved COVID-19 infection. 2. Diabetes mellitus, type 2. 3. Hypertension. 4. Dyslipidemia. 5. Anemia, microcytic. Her iron is slightly low, but ferritin is okay at 57.14. 6. Bipolar disorder. 7. Improving deconditioning. PLAN: 1. Continue current medications. 2. Advised the patient to take [id number] iron 1 tablet daily. 3. Continue on Eliquis for a total of 3 months. 4. 1800-calorie heart-healthy ADA diet. 5. Accu-Cheks with sliding scale coverage. 6. Decubitus precaution. 7. Outpatient followup with PCP. 8. Arrange home health. Job ID: [id number]
[2019-12-22] MEDS: OLANZapine 5 MG TAB PO SCH (20:21)
[2019-12-22] MEDS: Lisinopril 20 MG TAB PO SCH (20:21)
[2019-12-22] MEDS: Montelukast Sodium 10 mg Tablet PO SCH (20:21)
[2019-12-23] MEDS: Acetaminophen 325 MG TAB PO PRN ×2 (02:51→08:53)
[2019-12-23] MEDS: Mometasone/Formoterol 200/5 60 PUFF INH SCH (06:00)
[2019-12-23 07:23] VITALS: BP 184/83; TEMP 96.8
[2019-12-23] MEDS: Ascorbic Acid 500 mg Chewable Tablet PO SCH (08:49)
[2019-12-23] MEDS: Fenofibrate Nanocrystallized 145 MG TAB PO SCH (08:49)
[2019-12-23] MEDS: Apixaban 5 MG TAB PO SCH (08:50)
[2019-12-23] MEDS: HumuLIN 70/30 (300 UNITS/3 ML VIAL) SC SCH (08:50)
[2019-12-23] MEDS: Amlodipine 5 MG TAB PO SCH (08:50)
[2019-12-23] MEDS: Nystatin Powder 15 GM BOT TOP SCH (08:50)
--- NOTE | 2019-12-26 08:23 | DIS ---
DATE OF ADMISSION: 12/07/2019 DATE OF DISCHARGE: 12/23/2019 PRINCIPAL DIAGNOSES: 1. Much improved deconditioning. 2. Resolved acute hypoxemic respiratory failure. 3. Resolved acute renal failure. 4. Diabetes mellitus, type 2. 5. Hypertension. 6. Dyslipidemia. 7. Restless legs syndrome. 8. Fibromyalgia. 9. Anxiety and bipolar disorder. 10. Morbid obesity. 11. Asthma. 12. Resolved COVID-19 infection. COMPLICATIONS: None. ADVERSE REACTIONS: None. PROCEDURES: None. CONSULTATIONS: Physical Therapy and Occupational Therapy. HOSPITAL COURSE: The patient was transferred from [facility] in [place] after being admitted there for COVID positive pneumonia, renal failure due to acute tubular necrosis, and respiratory failure. She came to us on 3.5 L of oxygen. She has been weaned off her oxygen and is now on room air. She also was noted to have significant critical illness myopathy, but has significantly improved, and is able to ambulate independently with the help of a walker. Her blood sugars have been under control. She was noted to have elevated blood pressure, and I restarted her back on her lisinopril and her amlodipine. She was deemed stable for discharge to home. She is to continue Eliquis for a total of 3 months from her post admission to the hospital. She is to follow up with her PCP in 7 to 14 days. Home Health with PT and OT has been ordered. This note is to be used as a [id number]. The patient does qualify for home health as the patient is considered homebound. She was advised not to drive or go out for any recreational purposes. She she needs correction visits to monitor her blood sugars and continue to monitor respiratory status at home. Therapy also recommended continued PT and OT at home. PHYSICAL EXAMINATION: VITAL SIGNS: On the day of discharge, the patient is afebrile, heart rate is 90, respirations 16, oxygen saturation 95% on room air, blood pressure was 184/83. This was before she got her blood pressure medications. CARDIOVASCULAR: S1 and S2 plus. RESPIRATORY: Normal vesicular breath sounds. ABDOMEN: Soft, obese, nontender. Bowel sounds heard in all quadrants. EXTREMITIES: Without cyanosis or clubbing. Trace edema. CENTRAL NERVOUS SYSTEM: Generalized weakness, otherwise nonfocal. DISCHARGE MEDICATIONS: 1. Amlodipine 5 mg daily. 2. Eliquis 5 mg b.i.d. for 3 months. 3. Vitamin C 1000 mg daily. 4. Fenofibrate 160 mg daily. 5. Lisinopril 20 mg at bedtime. 6. Dulera two puffs inhalation b.i.d. Gargle after use. 7. Singulair 10 mg daily. 8. Pantoprazole 40 mg daily. 9. These are the prescriptions that she needed and I have sent it to [facility]. She is also on the following medications, for which she has prescriptions at home, 1. Tylenol 650 p.o. q.4 p.r.n. 2. Colace or Dulcolax b.i.d. p.r.n. 3. Humulin 70/30, but she states she has Novolin 70/30 at home and she uses at the same dose 35 units b.i.d. 4. DuoNeb 3 mL q.i.d. 5. Zyprexa 10 mg daily. She does have a 20 mg at home and I advised her that she can cut that in half. 6. MiraLAX 17 g in 8 ounces of water daily as needed. 7. Senokot-S two tablets b.i.d. p.r.n. DIET: 1800 calorie heart healthy ADA diet. ACTIVITY: As tolerated. FOLLOWUP: Follow up with PCP in 7 to 14 days. Home health is being arranged. She was advised to call me with any questions or concerns until she follows up with her PCP. TIME SPENT: Total time spent on this discharge, 35 minutes. Job ID: [id number]
== END 2019-12-23 11:50 | disposition home health service (06) | DRG 177 ==
LOC: NAV ACUTE 18:19
PROVIDERS: ADMIT Internal Medicine; ATTEND Internal Medicine
PROC: 8E0ZXY6 Isolation (ICD-10-PCS; principal; 2019-12-07)
DX: U07.1 COVID-19 (principal); J12.89 Other viral pneumonia; J96.01 Acute respiratory failure with hypoxia; Z68.42 Body mass index [BMI] 45.0-49.9, adult; E11.9 Type 2 diabetes mellitus without complications; I10 Essential (primary) hypertension; E78.5 Hyperlipidemia, unspecified; F31.9 Bipolar disorder, unspecified; R53.81 Other malaise; G25.81 Restless legs syndrome; M79.7 Fibromyalgia; F41.9 Anxiety disorder, unspecified; E66.01 Morbid (severe) obesity due to excess calories; J45.909 Unspecified asthma, uncomplicated; D50.9 Iron deficiency anemia, unspecified; Z90.710 Acquired absence of both cervix and uterus; Z90.722 Acquired absence of ovaries, bilateral; Z87.891 Personal history of nicotine dependence; Z88.1 Allergy status to other antibiotic agents; Z88.5 Allergy status to narcotic agent; Z91.040 Latex allergy status
CPT/HCPCS: 36415; 36416; 80048; 80053; 80061; 82728; 83036; 83540; 85014; 85018; 85025; 85049; 85610; 87635; C9113; J1815; J2920; J7512; J7620; Q0162; U0003